=== PATIENT | female | born 2000 | race Caucasian/White ===

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

== ENCOUNTER 2018-01-15 18:13 | Emergency (ER) | payer MEDICAID, OTHER ==
[~2018-01-15] VITALS: Ht 152.4 cm; Wt 49.4 kg
--- NOTE | 2018-01-15 19:00 | NUR ---
BIB SELF TO ER BED 11 C/O HEADACHE AND GENERAL WEAKNESS X 2 DAYS, WORSE TODAY. AA/OX 4. 8/10PAIN, NON RADIATING, WORSE WITH EYES CLOSED, PRESSURE TYPE PAIN IN FRONTAL REGION. NO S/S SOB. AMBULATED TO BED WITH STABLE GAIT. SKIN PINK, WARM, DRY. DENIES N/V. NAD. VSS. STABLE CONDITION. WILL CONTINUE TO MONITOR.
[2018-01-15] MEDS ORDERED: IBUPROFEN 600 MG TABLET PO ONE ×2 (19:43→20:00)
[2018-01-15 19:55] LABS: BASOPHILS % (AUTO) 0.2 % (0.0-2.0); EOSINOPHILS % (AUTO) 0.1 % (0.0-6.0); HEMATOCRIT 42 % (33-45); LYMPHOCYTES # (AUTO) 0.6 /CMM (0.8-4.8); LYMPHOCYTES % (AUTO) 14.3 % (20.0-44.0); MEAN CORPUSCULAR HGB CONC 33 g/dl (31.0-36.0); MEAN CORPUSCULAR VOLUME 88 fL (82-100); MONOCYTES # (AUTO) 0.3 /CMM (0.1-1.30); MONOCYTES % (AUTO) 6.6 % (2.0-12.0); NEUTROPHILS # (AUTO) 3.1 /CMM (1.8-8.9); NEUTROPHILS % (AUTO) 78.8 % (43.0-81.0); PLATELET COUNT (AUTO) 172 /CMM (150-450); RED BLOOD CELL COUNT(AUTO) 4.78 MIL/uL (4.0-5.2)
[2018-01-15] MEDS ORDERED: IV NS 0.9% 1,000 ML BAG IV ONE (20:00)
[2018-01-15 20:12] LABS: ALBUMIN 4.7 g/dL (3.4-5.0); BILIRUBIN,DIRECT 0.2 mg/dL (0.0-0.2); BILIRUBIN,TOTAL 0.9 mg/dL (0.2-1.0); CALCIUM, SERUM 9.4 mg/dL (8.5-10.1); CREATININE 0.9 mg/dL (0.6-1.3); POTASSIUM 3.8 mmol/L (3.5-5.1)
[2018-01-15 20:55] LABS: APPEARANCE,URINE Clear (CLEAR); BILIRUBIN,URINE Negative (NEGATIVE); BLOOD, URINE Negative Ery/uL (NEGATIVE); COLOR,URINE Yellow (YELLOW); KETONES,URINE 15 (NEGATIVE); LEUKOCYTE ESTERASE ,URINE Negative (NEGATIVE); NITRITE, URINE Negative (NEGATIVE); PH,URINE 7.5 (5.0-8.0); PROTEIN,URINE Negative (NEGATIVE); UGLUCOSE Negative (NEGATIVE)
[2018-01-15 21:15] LABS: BACTERIA,URINE Many /HPF (None Seen); MUCUS,URINE Moderate /LPF (None Seen); RBC,URINE NONE SEEN /HPF (0-2); SQUAMOUS EPITHELIAL CELL,UR Many /HPF (None Seen)
--- NOTE | 2018-01-15 21:30 | NUR ---
Patient discharged to home in stable condition. Written and verbal after care instructions given. Patient verbalizes understanding of instruction. IV removed. Catheter intact and site benign. Pressure and 4x4 applied to site. No bleeding noted. AMBULATED WITH STEADY GAIT
[2018-01-15 21:31] VITALS: BP 111/70
== END 2018-01-15 21:32 | disposition home or self-care (01) ==
LOC: ER 18:13
DX: N39.0 Urinary tract infection, site not specified (principal); R51 Headache; D64.9 Anemia, unspecified
CPT/HCPCS: 36415; 71045; 80048; 80076; 81001; 83690; 84703; 85025; 87086; 99285; A4606; J7030; Z7610; 81000-TC

== ENCOUNTER 2018-10-16 16:59 | Emergency (ER) | payer OTHER ==
[~2018-10-16] VITALS: Ht 162.6 cm; Wt 65.8 kg
[2018-10-16 18:22] VITALS: BP 141/21
--- NOTE | 2018-10-16 18:45 | NUR ---
Patient does not wish to proceed with medical care recommended by Dr. CURRAN/ Nii TOURE PA-C. Patient given information related to possible complications, up to and including , which could occur as a result of leaving the hospital at this time. Patient verbalizes understanding of risks involved due to leaving against medical advice. Patient has signed AMA form. PT REC'D ALL ACI AND RX FOR AMOXICILLAN. PT REFUSED CT HEAD.
== END 2018-10-16 18:46 | disposition home or self-care (01) ==
LOC: ER 17:05
DX: S09.21XA Traumatic rupture of right ear drum, initial encounter (principal); D64.9 Anemia, unspecified; Y04.2XXA Assault by strike against or bumped into by another person, initial encounter; Y93.89 Activity, other specified; Y92.89 Other specified places as the place of occurrence of the external cause; Y99.8 Other external cause status

== ENCOUNTER 2021-06-25 07:05 | Emergency (ER) | payer OTHER ==
[~2021-06-25] VITALS: Ht 154.9 cm; Wt 68.0 kg
[2021-06-25 07:15] VITALS: BP 118/74
[2021-06-25] MEDS ORDERED: IBUP-1955 PO (08:03)
--- NOTE | 2021-06-25 08:09 | NUR ---
STAINED GLASS JOINER AT BEDSIDE FOR REYES WRAP APPLICATION.
[2021-06-25] MEDS ORDERED: IBUPROFEN 600 MG TABLET PO ONE (08:30)
== END 2021-06-25 08:10 | disposition home or self-care (01) ==
LOC: ER 07:13
DX: S93.401A Sprain of unspecified ligament of right ankle, initial encounter (principal); Z86.2 Personal history of diseases of the blood and blood-forming organs and certain disorders involving the immune mechanism; X50.1XXA Overexertion from prolonged static or awkward postures, initial encounter; Y93.89 Activity, other specified; Y92.89 Other specified places as the place of occurrence of the external cause; Y99.8 Other external cause status
CPT/HCPCS: 73610-TC

== ENCOUNTER 2022-05-22 15:01 | Emergency (ER) | payer OTHER ==
[~2022-05-22] VITALS: Ht 154.9 cm; Wt 68.0 kg
[~2022-05-22 15:01] MED LIST changes: +IBUP-1955 PO
[2022-05-22] MEDS ORDERED: IBUPROFEN 600 MG TABLET ONE (15:32)
[2022-05-22] MEDS ORDERED: ACETAMINOPHEN ES 500 MG TABLET ONE (15:32)
[2022-05-22] MEDS: ACETAMINOPHEN ES 500 MG TABLET PO ONE (15:33)
[2022-05-22] MEDS: IBUPROFEN 600 MG TABLET PO ONE (15:33)
--- NOTE | 2022-05-22 15:34 | NUR ---
MOTRIN AND TYLENOL PO GIVEN INDICATED, ELIDA WELL.
[2022-05-22] MEDS ORDERED: IBUP-1953 PO (16:37)
[2022-05-22 16:49] VITALS: BP 112/60
--- NOTE | 2022-05-22 16:49 | NUR ---
Patient discharged to home in stable condition. Written and verbal after care instructions given. Patient verbalizes understanding of instruction.
== END 2022-05-22 16:49 | disposition home or self-care (01) ==
LOC: ER 15:17
DX: S93.491A Sprain of other ligament of right ankle, initial encounter (principal); X50.1XXA Overexertion from prolonged static or awkward postures, initial encounter; Y93.89 Activity, other specified; Y92.89 Other specified places as the place of occurrence of the external cause; Y99.8 Other external cause status
CPT/HCPCS: 73610-TC